=== PATIENT | female | born 1970 | race American Indian/Alaskan Native ===

== ENCOUNTER 2020-12-14 16:05 | Emergency (ER) | payer SELFPAY ==
[2020-12-14] MEDS ORDERED: SODIUM CHLORIDE 0.9% 1000 ML 1,000 ML IV ONE (16:17)
[2020-12-14] MEDS ORDERED: ONDANSETRON 4 MG/2 ML INJ IV ONE (16:17)
[2020-12-14] MEDS ORDERED: MORPHINE 4 MG/1 ML INJ IV ONE (16:17)
[2020-12-14 16:43] LABS: Hemoglobin 11.5 gm/dl (10.1-14.3); Mean Corpuscular HGB Conc 33 % (30-34); Mean Corpuscular Volume 83 fl (79-97); Platelet Count 268 K/mm3 (140-440); Red Cell Distribution Width 14.2 % (13.2-15.2)
[2020-12-14 16:59] LABS: Alanine Aminotransferase 18 units/L (7-56); Albumin 3.5 g/dL (3.9-5); BUN/Creatinine Ratio 12; Blood Urea Nitrogen 13 mg/dL (7-17); Calcium 8.9 mg/dL (8.4-10.2); Hemolysis Index 4
--- NOTE | 2020-12-14 17:20 | Emergency Department Report ---
ED Abdominal Pain HPI - General Chief Complaint: Abdominal Pain Stated Complaint: LOWER LEFT SIDE Time Seen by Provider: 12/14/20 16:11 Source: patient Mode of arrival: Ambulatory Limitations: No Limitations - History of Present Illness Initial Comments: Patient is a 50-year-old female presents emergency room complaints of left lower quadrant abdominal pain that began 2 days ago. She states that she has had some urinary frequency but reports she has been drinking more liquids. She denies any nausea, vomiting, diarrhea, dysuria, dark urine, odor to the urine, hematochezia, melena, hematemesis. She states that she had a normal bowel movement yesterday. She denies any past medical history. No allergies to medications. She denies any past abdominal surgical history. She states that she is a non-smoker, nondrinker, denies drug use. Severity scale (0 -10): 10 - Related Data Previous Rx's Medication Instructions Recorded Last Taken Type traMADoL [Ultram 50 MG tab] 50 mg PO Q6HR PRN #15 tablet 05/04/15 Unknown Rx Ondansetron [Zofran Odt] 4 mg PO Q8HR PRN #10 tab.rapdis 12/14/20 Unknown Rx Tamsulosin [Flomax] 0.4 mg PO QDAY 3 Days #3 cap 12/14/20 Unknown Rx cephALEXin [Keflex] 500 mg PO BID 7 Days #14 capsule 12/14/20 Unknown Rx oxyCODONE /ACETAMINOPHEN [Percocet 1 tab PO Q6HR PRN #12 tablet 12/14/20 Unknown Rx 5/325] Allergies Allergy/AdvReac Type Severity Reaction Status Date / Time No Known Allergies Allergy Verified 12/14/20 16:08 ED Review of Systems ROS: Stated complaint: LOWER LEFT SIDE Other details as noted in HPI Comment: All other systems reviewed and negative ED Past Medical Hx - Medications Home Medications: Home Medications Medication Instructions Recorded Confirmed Last Taken Type traMADoL [Ultram 50 MG tab] 50 mg PO Q6HR PRN #15 tablet 05/04/15 12/14/20 Unknown Rx Ondansetron [Zofran Odt] 4 mg PO Q8HR PRN #10 tab.rapdis 12/14/20 Unknown Rx Tamsulosin [Flomax] 0.4 mg PO QDAY 3 Days #3 cap 12/14/20 Unknown Rx cephALEXin [Keflex] 500 mg PO BID 7 Days #14 capsule 12/14/20 Unknown Rx oxyCODONE /ACETAMINOPHEN [Percocet 1 tab PO Q6HR PRN #12 tablet 12/14/20 Unknown Rx 5/325] ED Physical Exam - General Limitations: No Limitations General appearance: alert, in no apparent distress - Head Head exam: Present: atraumatic, normocephalic - Eye Eye exam: Present: normal appearance - ENT ENT exam: Present: mucous membranes moist - Respiratory Respiratory exam: Present: normal lung sounds bilaterally. Absent: respiratory distress, wheezes, rales, rhonchi, stridor, chest wall tenderness, accessory muscle use, decreased breath sounds, prolonged expiratory - Cardiovascular Cardiovascular Exam: Present: regular rate, normal rhythm, normal heart sounds. Absent: systolic murmur, diastolic murmur, rubs, gallop - GI/Abdominal GI/Abdominal exam: Present: soft, tenderness (LLQ), normal bowel sounds. Absent: distended, guarding, rebound, rigid - Neurological Exam Neurological exam: Present: alert, oriented X3 - Psychiatric Psychiatric exam: Present: normal affect, normal mood - Skin Skin exam: Present: warm, dry, intact ED Course Vital Signs 12/14/20 12/14/20 16:09 19:00 Temperature 99.1 F Pulse Rate 114 H 91 H Respiratory 18 16 Rate Blood Pressure 114/66 103/60 [Left] O2 Sat by Pulse 99 96 Oximetry ED Medical Decision Making - Lab Data Result diagrams: 12/14/20 16:26 12/14/20 16:26 Lab Results 12/14/20 12/14/20 12/14/20 Range/Units 16:26 16:26 16:26 WBC 13.1 H (4.5-11.0) K/mm3 RBC 4.20 (3.65-5.03) M/mm3 Hgb 11.5 (10.1-14.3) gm/dl Hct 35.0 (30.3-42.9) % MCV 83 (79-97) fl MCH 27 L (28-32) pg MCHC 33 (30-34) % RDW 14.2 (13.2-15.2) % Plt Count 268 (140-440) K/mm3 Add Manual Diff Complete Total Counted 100 Seg Neuts % (Manual) 94.0 H (40.0-70.0) % Lymphocytes % (Manual) 4.0 L (13.4-35.0) % Monocytes % (Manual) 2.0 (0.0-7.3) % Nucleated RBC % Not Reportable Seg Neutrophils # Man 12.3 H (1.8-7.7) K/mm3 Band Neutrophils # 0.0 K/mm3 Lymphocytes # (Manual) 0.5 L (1.2-5.4) K/mm3 Abs React Lymphs (Man) 0.0 K/mm3 Monocytes # (Manual) 0.3 (0.0-0.8) K/mm3 Eosinophils # (Manual) 0.0 (0.0-0.4) K/mm3 Basophils # (Manual) 0.0 (0.0-0.1) K/mm3 Metamyelocytes # 0.0 K/mm3 Myelocytes # 0.0 K/mm3 Promyelocytes # 0.0 K/mm3 Blast Cells # 0.0 K/mm3 WBC Morphology Not Reportable Hypersegmented Neuts Not Reportable Hyposegmented Neuts Not Reportable Hypogranular Neuts Not Reportable Smudge Cells Not Reportable Toxic Granulation Not Reportable Toxic Vacuolation Not Reportable Dohle Bodies Not Reportable Pelger-Huet Anomaly Not Reportable Nasima Rods Not Reportable Platelet Estimate Not Reportable Clumped Platelets Not Reportable Plt Clumps, EDTA Not Reportable Large Platelets Not Reportable Giant Platelets Not Reportable Platelet Satelliting Not Reportable Plt Morphology Comment Not Reportable RBC Morphology Normal Dimorphic RBCs Not Reportable Polychromasia Not Reportable Hypochromasia Not Reportable Poikilocytosis Not Reportable Anisocytosis Not Reportable Microcytosis Not Reportable Macrocytosis Not Reportable Spherocytes Not Reportable Pappenheimer Bodies Not Reportable Sickle Cells Not Reportable Target Cells Not Reportable Tear Drop Cells Not Reportable Ovalocytes Not Reportable Helmet Cells Not Reportable [place] Bodies Not Reportable [place] Rings Not Reportable [place] Cells Not Reportable Bite Cells Not Reportable Crenated Cell Not Reportable Elliptocytes Not Reportable Acanthocytes (Spur) Not Reportable Rouleaux Not Reportable Hemoglobin C Crystals Not Reportable Schistocytes Not Reportable Malaria parasites Not Reportable Trevor Bodies Not Reportable Hem Pathologist Commnt No Sodium 136 L (137-145) mmol/L Potassium 3.6 (3.6-5.0) mmol/L Chloride 99.3 (98-107) mmol/L Carbon Dioxide 22 (22-30) mmol/L Anion Gap 18 mmol/L BUN 13 (7-17) mg/dL Creatinine 1.1 (0.6-1.2) mg/dL Estimated GFR > 60 ml/min BUN/Creatinine Ratio 12 % Glucose 120 H (65-100) mg/dL Calcium 8.9 (8.4-10.2) mg/dL Total Bilirubin 0.50 (0.1-1.2) mg/dL AST 20 (5-40) units/L ALT 18 (7-56) units/L Alkaline Phosphatase 126 (35-129) units/L Total Protein 8.3 H (6.3-8.2) g/dL Albumin 3.5 L (3.9-5) g/dL Albumin/Globulin Ratio 0.7 % Lipase 30 (13-60) units/L HCG, Qual Negative (Negative) Urine Color (Yellow) Urine Turbidity (Clear) Urine pH (5.0-7.0) Ur Specific Center (1.003-1.030) Urine Protein (Negative) mg/dL Urine Glucose (UA) (Negative) mg/dL Urine Ketones (Negative) mg/dL Urine Blood (Negative) Urine Nitrite (Negative) Urine Bilirubin (Negative) Urine Urobilinogen (<2.0) mg/dL Ur Leukocyte Esterase (Negative) Urine WBC (Auto) (0.0-6.0) /HPF Urine RBC (Auto) (0.0-6.0) /HPF U Epithel Cells (Auto) (0-13.0) /HPF 12/14/20 Range/Units 18:19 WBC (4.5-11.0) K/mm3 RBC (3.65-5.03) M/mm3 Hgb (10.1-14.3) gm/dl Hct (30.3-42.9) % MCV (79-97) fl MCH (28-32) pg MCHC (30-34) % RDW (13.2-15.2) % Plt Count (140-440) K/mm3 Add Manual Diff Total Counted Seg Neuts % (Manual) (40.0-70.0) % Lymphocytes % (Manual) (13.4-35.0) % Monocytes % (Manual) (0.0-7.3) % Nucleated RBC % Seg Neutrophils # Man (1.8-7.7) K/mm3 Band Neutrophils # K/mm3 Lymphocytes # (Manual) (1.2-5.4) K/mm3 Abs React Lymphs (Man) K/mm3 Monocytes # (Manual) (0.0-0.8) K/mm3 Eosinophils # (Manual) (0.0-0.4) K/mm3 Basophils # (Manual) (0.0-0.1) K/mm3 Metamyelocytes # K/mm3 Myelocytes # K/mm3 Promyelocytes # K/mm3 Blast Cells # K/mm3 WBC Morphology Hypersegmented Neuts Hyposegmented Neuts Hypogranular Neuts Smudge Cells Toxic Granulation Toxic Vacuolation Dohle Bodies Pelger-Huet Anomaly Nasima Rods Platelet Estimate Clumped Platelets Plt Clumps, EDTA Large Platelets Giant Platelets Platelet Satelliting Plt Morphology Comment RBC Morphology Dimorphic RBCs Polychromasia Hypochromasia Poikilocytosis Anisocytosis Microcytosis Macrocytosis Spherocytes Pappenheimer Bodies Sickle Cells Target Cells Tear Drop Cells Ovalocytes Helmet Cells [place] Bodies [place] Rings [place] Cells Bite Cells Crenated Cell Elliptocytes Acanthocytes (Spur) Rouleaux Hemoglobin C Crystals Schistocytes Malaria parasites Trevor Bodies Hem Pathologist Commnt Sodium (137-145) mmol/L Potassium (3.6-5.0) mmol/L Chloride (98-107) mmol/L Carbon Dioxide (22-30) mmol/L Anion Gap mmol/L BUN (7-17) mg/dL Creatinine (0.6-1.2) mg/dL Estimated GFR ml/min BUN/Creatinine Ratio % Glucose (65-100) mg/dL Calcium (8.4-10.2) mg/dL Total Bilirubin (0.1-1.2) mg/dL AST (5-40) units/L ALT (7-56) units/L Alkaline Phosphatase (35-129) units/L Total Protein (6.3-8.2) g/dL Albumin (3.9-5) g/dL Albumin/Globulin Ratio % Lipase (13-60) units/L HCG, Qual (Negative) Urine Color Yellow (Yellow) Urine Turbidity Slightly-cloudy (Clear) Urine pH 6.0 (5.0-7.0) Ur Specific Center 1.023 (1.003-1.030) Urine Protein <15 mg/dl (Negative) mg/dL Urine Glucose (UA) Neg (Negative) mg/dL Urine Ketones Neg (Negative) mg/dL Urine Blood Mod (Negative) Urine Nitrite Pos (Negative) Urine Bilirubin Neg (Negative) Urine Urobilinogen < 2.0 (<2.0) mg/dL Ur Leukocyte Esterase Lg (Negative) Urine WBC (Auto) 27.0 H (0.0-6.0) /HPF Urine RBC (Auto) 6.0 (0.0-6.0) /HPF U Epithel Cells (Auto) 3.0 (0-13.0) /HPF - Radiology Data Radiology results: report reviewed Ordering Physician: MANUEL HAIRSTON Date of Service: 12/14/20 Procedure(s): CT abdomen pelvis w con Accession Number(s): [id number] cc: MANUEL HAIRSTON CT abdomen pelvis w con INDICATION: LLQ abd pain 100 ML OMNI 300 . COMPARISON: None TECHNIQUE: Abdominal and pelvic CT exam performed. All CT scans at this location are performed using CT dose reduction for ALARA by means of automated exposure control. FINDINGS: CT ABDOMEN and PELVIS: Lung Bases: No significant abnormality. Liver: No significant abnormality. Biliary: No significant abnormality. Spleen: No significant abnormality. Pancreas: No significant abnormality. Adrenals: No significant abnormality. Kidneys: 4mm left mid intraureteral stone. Severe left hydronephrosis. Delayed left nephrogram. There are several bilateral nonobstructing renal stones. The largest is in the right lower pole calyx measuring 1.3 cm. Lymphatics: No lymphadenopathy. Vasculature: No significant abnormality. Bowel: No significant abnormality. Normal appendix. Pelvis: No significant abnormality. Osseous Structures: No aggressive osseous lesion. Additional Findings: None IMPRESSION: 1. 4mm left mid intraureteral stone resulting in severe left hydronephrosis. 2. Nonobstructing nephrolithiasis. Signer Name: Viral Garcia MD Signed: 12/14/2020 6:10 PM Workstation Name: [id number] Transcribed By: LOWELL Dictated By: Viral Garcia MD Electronically Authenticated By: Viral Garcia MD Signed Date/Time: 12/14/201809 DD/ 56 TD/TT: - Medical Decision Making Patient is a 50-year-old female presents emergency room complaints of left lower quadrant abdominal pain that began 2 days ago. She states that she has had some urinary frequency but reports she has been drinking more liquids. She denies any nausea, vomiting, diarrhea, dysuria, dark urine, odor to the urine, hematochezia, melena, hematemesis. She states that she had a normal bowel movement yesterday. She denies any past medical history. No allergies to medications. She denies any past abdominal surgical history. She states that she is a non-smoker, nondrinker, denies drug use. Initial vitals with tachycardia which improved to normal. On exam patient has left lower quadrant tenderness, no guarding, no rebound, no rigidity, no peritoneal signs. Labs with mild leukocytosis. UA shows evidence of UTI. No renal dysfunction. CT abd pelvis without contrast: 1. 4mm left mid intraureteral stone resulting in severe left hydronephrosis. 2. Nonobstructing nephrolithiasis. Patient given medications with improvement of her symptoms and her pain has significantly improved. Discussed all findings with patient. Discussed case with Dr. Rhodes, ER attending who recommended outpatient urology follow-up. Patient given prescription for medications. Advised patient please take medication as prescribed. Increase your fluid intake. Follow-up with a urologist. Follow-up with your primary care doctor. Return to emergency room for any new or worsening symptoms. Critical care attestation.: If time is entered above; I have spent that time in minutes in the direct care of this critically ill patient, excluding procedure time. ED Disposition Clinical Impression: Nephrolithiasis UTI (urinary tract infection) Qualifiers: Urinary tract infection type: acute cystitis Hematuria presence: without hematuria Qualified Code(s): N30.00 - Acute cystitis without hematuria Hydronephrosis Qualifiers: Hydronephrosis type: with ureteral calculous obstruction Qualified Code(s): N13.2 - Hydronephrosis with renal and ureteral calculous obstruction Disposition: HOME / SELF CARE / HOMELESS Is pt being admited?: No Does the pt Need Aspirin: No Condition: Stable Instructions: Kidney Stones, Urinary Tract Infection, Adult, [id number], Abdominal Pain (ED) Additional Instructions: please take medication as prescribed. Increase your fluid intake. Follow-up with a urologist. Follow-up with your primary care doctor. Return to emergency room for any new or worsening symptoms. Prescriptions: Tamsulosin [Flomax] 0.4 mg PO QDAY 3 Days #3 cap cephALEXin [Keflex] 500 mg PO BID 7 Days #14 capsule oxyCODONE /ACETAMINOPHEN [Percocet 5/325] 1 tab PO Q6HR PRN #12 tablet PRN Reason: Pain , Severe (7-10) Ondansetron [Zofran Odt] 4 mg PO Q8HR PRN #10 tab.rapdis PRN Reason: nausea/vomiting Referrals: ROBYN ERNANDEZ MD [Staff Physician] - 2-[address] [facility] [Provider Group] - 2-3 Days Time of Disposition: 19:27 Print Language: HUNGARIAN
[2020-12-14 17:41] LABS: RBC Morphology Normal; Total Cells Counted 100
--- NOTE | 2020-12-14 18:14 | Cat Scan Report ---
CT abdomen pelvis w con INDICATION: LLQ abd pain 100 ML OMNI 300 . COMPARISON: None TECHNIQUE: Abdominal and pelvic CT exam performed. All CT scans at this location are performed using CT dose reduction for ALARA by means of automated exposure control. FINDINGS: CT ABDOMEN and PELVIS: Lung Bases: No significant abnormality. Liver: No significant abnormality. Biliary: No significant abnormality. Spleen: No significant abnormality. Pancreas: No significant abnormality. Adrenals: No significant abnormality. Kidneys: 4mm left mid intraureteral stone. Severe left hydronephrosis. Delayed left nephrogram. There are several bilateral nonobstructing renal stones. The largest is in the right lower pole calyx garth uring 1.3 cm. Lymphatics: No lymphadenopathy. Vasculature: No significant abnormality. Bowel: No significant abnormality. Normal appendix. Pelvis: No significant abnormality. Osseous Structures: No aggressive osseous lesion. Additional Findings: None IMPRESSION: 1. 4mm left mid intraureteral stone resulting in severe left hydronephrosis. 2. Nonobstructing nephrolithiasis. Signer Name: Viral Garcia MD Signed: 12/14/2020 6:10 PM Workstation Name: [id number]
[2020-12-14 19:00] VITALS: BP 103/60
[2020-12-14 19:06] LABS: Bilirubin,Urine NEG (Negative); Blood,Urine MOD (Negative); Color,Urine Yellow (Yellow); Protein,Urine <15 mg/dL mg/dL (Negative); Urobilinogen,Urine < 2.0 mg/dL (<2.0)
[2020-12-14] MEDS ORDERED: cefTRIAXone/NS 1 GM/50 ML 1 GM/50 ML BAG IV ONE (19:26)
== END 2020-12-14 21:25 | disposition home or self-care (01) ==
LOC: ED 16:05
DX: N13.2 Hydronephrosis with renal and ureteral calculous obstruction (principal); N39.0 Urinary tract infection, site not specified; Z79.899 Other long term (current) drug therapy
CPT/HCPCS: 36415; 74177; 80053; 81001; 83690; 84703; 85007; 85025; 87076; 87086; 87186; 96361; 96365; 96375; 99284; J0696; J2270; J2405; J7030; Q9967

== ENCOUNTER 2021-02-27 18:56 | Emergency (ER) | payer OTHER | END 2021-03-01 05:09 | disposition left against medical advice (07) | LOC: ED 18:56 | DX: N20.0 Calculus of kidney (principal); Z53.21 Procedure and treatment not carried out due to patient leaving prior to being seen by health care provider ==

== ENCOUNTER 2021-11-23 12:55 | Emergency (ER) | payer OTHER ==
[2021-11-23] MEDS ORDERED: IPRATROPIUM/ALBUTEROL SULFATE 3 ML AMPUL.NEB IH ONE (19:24)
[2021-11-23] MEDS ORDERED: dexAMETHasone 20 MG/5 ML VIAL IM ONE (19:24)
[2021-11-23] MEDS ORDERED: guaiFENesin/CODEINE 100-10MG ORAL LIQD 5 ML PO ONE (19:25)
--- NOTE | 2021-11-23 19:40 | Emergency Department Report ---
- General Chief Complaint: Upper Respiratory Infection Stated Complaint: BRONCHITIS FLARE UP Time Seen by Provider: 11/23/21 19:17 Source: patient Mode of arrival: Ambulatory Limitations: No Limitations - History of Present Illness Initial Comments: 51-year-old female with history of bronchitis presents to the emergency department with bronchitis flare. Patient describes persistent coughing, wheezing, shortness of breath, which is going on for the last 3 days, she attributes her symptoms to the weather change. Reports whenever she has a flare she usually has to be treated with steroids and antibiotics. She denies fever or chills, no nausea or vomiting, no headache dizziness or vision changes, no recent travel or sick contacts, no orthopnea, no vision changes. MD Complaint: cough Improves With: nothing Associated Symptoms: nasal congestion, cough, shortness of breath. denies: fever, chills, sore throat, chest pain, nausea, vomiting, confusion, hoarseness Treatments Prior to Arrival: none - Related Data Previous Rx's Medication Instructions Recorded Last Taken Type traMADoL [Ultram 50 MG tab] 50 mg PO Q6HR PRN #15 tablet 05/04/15 Unknown Rx Ondansetron [Zofran Odt] 4 mg PO Q8HR PRN #10 tab.rapdis 12/14/20 Unknown Rx Tamsulosin [Flomax] 0.4 mg PO QDAY 3 Days #3 cap 12/14/20 Unknown Rx cephALEXin [Keflex] 500 mg PO BID 7 Days #14 capsule 12/14/20 Unknown Rx oxyCODONE /ACETAMINOPHEN [Percocet 1 tab PO Q6HR PRN #12 tablet 12/14/20 Unknown Rx 5/325] Naproxen 500 mg PO BID PRN #20 tablet 03/08/21 Unknown Rx ALBUTEROL NEB's [Proventil 0.083% 2.5 mg IH Q4H PRN #90 neb 11/23/21 Unknown Rx NEBS] Albuterol Mdi (or & Nicu Only) 2 puff IH QID PRN #8.5 gram 11/23/21 Unknown Rx [ProAir HFA Inhaler] Azithromycin 250 mg PO DAILY 5 Days #6 11/23/21 Unknown Rx guaiFENesin/CODEINE [Robitussin AC] 10 ml PO TID PRN #80 oral.liqd 11/23/21 Unknown Rx predniSONE 40 mg PO DAILY 5 Days tab 11/23/21 Unknown Rx Allergies Allergy/AdvReac Type Severity Reaction Status Date / Time No Known Allergies Allergy Verified 11/23/21 13:08 ED Review of Systems ROS: Stated complaint: BRONCHITIS FLARE UP Other details as noted in HPI Constitutional: chills. denies: fever Cardiovascular: dyspnea on exertion. denies: chest pain, palpitations Endocrine: denies: excessive sweating Gastrointestinal: denies: abdominal pain Musculoskeletal: denies: back pain Skin: denies: rash Neurological: denies: headache, weakness, numbness ED Past Medical Hx - Past Medical History Previous Medical History?: Yes - Medications Home Medications: Home Medications Medication Instructions Recorded Confirmed Last Taken Type traMADoL [Ultram 50 MG tab] 50 mg PO Q6HR PRN #15 tablet 05/04/15 12/14/20 Unknown Rx Ondansetron [Zofran Odt] 4 mg PO Q8HR PRN #10 tab.rapdis 12/14/20 Unknown Rx Tamsulosin [Flomax] 0.4 mg PO QDAY 3 Days #3 cap 12/14/20 Unknown Rx cephALEXin [Keflex] 500 mg PO BID 7 Days #14 capsule 12/14/20 Unknown Rx oxyCODONE /ACETAMINOPHEN [Percocet 1 tab PO Q6HR PRN #12 tablet 12/14/20 Unknown Rx 5/325] Naproxen 500 mg PO BID PRN #20 tablet 03/08/21 Unknown Rx ALBUTEROL NEB's [Proventil 0.083% 2.5 mg IH Q4H PRN #90 neb 11/23/21 Unknown Rx NEBS] Albuterol Mdi (or & Nicu Only) 2 puff IH QID PRN #8.5 gram 11/23/21 Unknown Rx [ProAir HFA Inhaler] Azithromycin 250 mg PO DAILY 5 Days #6 11/23/21 Unknown Rx guaiFENesin/CODEINE [Robitussin AC] 10 ml PO TID PRN #80 oral.liqd 11/23/21 Unknown Rx predniSONE 40 mg PO DAILY 5 Days tab 11/23/21 Unknown Rx ED Physical Exam - General Limitations: No Limitations General appearance: alert, in no apparent distress, other (Speech is clear nasal accessory muscles,) - Head Head exam: Present: atraumatic - Eye Eye exam: Present: normal appearance, PERRL - ENT ENT exam: Present: normal exam, normal orophraynx - Neck Neck exam: Present: normal inspection - Respiratory Respiratory exam: Present: chest wall tenderness, other (Tight). Absent: res piratory distress, wheezes - Cardiovascular Cardiovascular Exam: Present: regular rate, normal rhythm - GI/Abdominal GI/Abdominal exam: Present: soft. Absent: distended, tenderness - Extremities Exam Extremities exam: Present: normal inspection, full ROM - Back Exam Back exam: Present: normal inspection, full ROM. Absent: CVA tenderness (R), CVA tenderness (L) - Neurological Exam Neurological exam: Present: alert, oriented X3, CN II-XII intact, normal gait - Psychiatric Psychiatric exam: Present: normal affect, normal mood - Skin Skin exam: Present: warm, dry, intact, normal color ED Course Vital Signs 11/23/21 13:07 Temperature 97.4 F L Pulse Rate 77 Respiratory 18 Rate Blood Pressure 135/86 [Left] O2 Sat by Pulse 99 Oximetry ED Medical Decision Making - Medical Decision Making Differential diagnosis includes pneumonia, bronchitis, PE, COVID, influenza, CHF, effusion, 51-year-old female with history of bronchitis presents to the emergency department with bronchitis flare. Patient describes persistent coughing, wheezing, shortness of breath, which is going on for the last 3 days, she attributes her symptoms to the weather change. Reports whenever she has a flare she usually has to be treated with steroids and antibiotics. She denies fever or chills, no nausea or vomiting, no headache dizziness or vision changes, no recent travel or sick contacts, no orthopnea, no vision changes. 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 Patient is maintaining oxygen above 95% on room air without exertion, Marked improvement of her symptoms during ed course Patient is able to ambulate to the restroom without assistance, Critical care attestation.: If time is entered above; I have spent that time in minutes in the direct care of this critically ill patient, excluding procedure time. ED Disposition Clinical Impression: Allergic bronchitis with acute exacerbation Disposition: HOME / SELF CARE / HOMELESS Is pt being admited?: No Does the pt Need Aspirin: No Condition: Stable Instructions: Chronic Bronchitis (ED), Bronchospasm, Adult Prescriptions: predniSONE 40 mg PO DAILY 5 Days tab Albuterol Mdi (or & Nicu Only) [ProAir HFA Inhaler] 2 puff IH QID PRN #8.5 gram PRN Reason: Shortness Of Breath ALBUTEROL NEB's [Proventil 0.083% NEBS] 2.5 mg IH Q4H PRN #90 neb PRN Reason: Wheezing guaiFENesin/CODEINE [Robitussin AC] 10 ml PO TID PRN #80 oral.liqd PRN Reason: Cough
[2021-11-23 20:59] VITALS: BP 131/84
== END 2021-11-23 21:25 | disposition home or self-care (01) ==
LOC: ED 12:55
DX: J45.901 Unspecified asthma with (acute) exacerbation (principal)
CPT/HCPCS: 94640; 96372; 99282; J1100; 94644